=== PATIENT | female | born 1960 | race Caucasian/White ===

== ENCOUNTER 2016-10-10 21:37 | Inpatient (IN) | payer OTHER ==
[~2016-10-10] VITALS: Ht 165.1 cm; Wt 128.4 kg
--- NOTE | ~2016-10-10 | CATHLAB ---
[facility] [email or web address] [address] INVASIVE PROCEDURE REPORT Name: DESMOND EDWARD TIMOTHY Room #: 219-P [facility] IN ..#: [id number] Admission: 10/10/16 Attend Phys: Thien Abrams Discharge: Date of : 64 Date of Service: 10/11/16 1044 Report #: [id number] THIS REPORT FOR: //name// CC: Jamie Lopez DATE OF SERVICE: 10/11/2016 INDICATIONS: Unstable angina Full risks, benefits and alternatives of cardiac catheterization were explained to the patient. All questions were answered. Informed consent was obtained. The right groin area was prepped and draped in a sterile manner. Lidocaine was given subcutaneously. A 4-Central [place] sheath was inserted into the right femoral artery via modified Seldinger technique. CORONARY ANATOMY: The left main artery is a large caliber vessel, with no flow-limiting lesions. The LAD is calcified in the proximal segment with mild disease, less than 20%. There is a stent in the mid segment of the LAD, patent with mild restenosis, less than 30%. Just before this stented area, there is mild diffuse disease, 30%. The distal LAD tapers down to a small size caliber vessel with mild plaquing. The left circumflex artery has an ostial 40% stenosis. There are multiple stents in the proximal and mid segments of the left circumflex artery, with crzk-vn-dewrclvi restenosis, 20-40%. The first obtuse marginal artery is a small caliber vessel with a stent in the proximal segment. There is at least moderate restenosis, 50-60% within the stent of the first obtuse marginal artery. This is a small caliber vessel and medical therapy is recommended. The RCA is a dominant vessel. There is mild diffuse disease in the proximal and mid segments of the RCA, 30%. The PDA has a focal 50% stenosis in the mid segment. There are posterolateral branches with mild plaquing. A left ventriculogram was performed revealing normal LV systolic function, ejection fraction of 60%. The LVEDP is approximately 33 mmHg. There is no [facility] [address] [place] [address] INVASIVE PROCEDURE REPORT Name: CHEYANNEDESMONDJessica AGUIRRE Room #: 219-P [facility] IN M.R.#: [id number] Admission: 10/10/16 Attend Phys: Thien Abrams Discharge: Date of : 64 Date of Service: 10/11/16 1044 Report #: [id number] gradient across the outflow tract. IMPRESSION: 1. Patent stents in the left anterior descending with mild restenosis. 2. Patent stents in the left circumflex artery with uylx-ba-ddlhnpkd restenosis. 3. Chjihbzz-kh-xpiedd restenotic lesion in the first obtuse marginal artery stent, this is a small caliber vessel and medical therapy is recommended. 4. Moderate stenosis in the mid posterior descending artery. Recommend medical therapy. 5. Normal left ventricular systolic function. <ELECTRONICALLY SIGNED> By: Winston Munoz MD 10/12/16 1219 1044 1140 Winston Munoz MD /nt
--- NOTE | ~2016-10-10 | EKG ---
[place] [address] [facility] [place] [address] ELECTROCARDIOGRAM REPORT Name: DESMOND EDWARD Room #: 219-P ADM IN M.R.#: [id number] Admission: 10/10/16 Attend Phys: Bernardo Lopez MD Discharge: Date of : 64 Report #: [id number] THIS REPORT FOR: //name// [facility] ED Test Date: 2016-10-10 Test Time: 21:41:36 Pat Name: DESMOND EDWARD Department: Room: 219 P Gender: F Mangle Roller: [id number] : 1960 Requested By: Rigoberto Aldridge Order Number: [id number] MD: Winston Munoz Measurements Intervals [place] Rate: 45 P: 45 [place]: 199 QRS: 8 QRSD: 111 T: 92 QT: 507 QTc: 439 Interpretive Statements Sinus bradycardia Borderline low voltage, extremity leads Poor R wave progression Nonspecific T abnormalities, lateral leads No previous ECG available for comparison Electronically Signed On 10-11-2016 10:46:11 [employer]STRUCTION [employer] by Winston Munoz [email or web address] <ELECTRONICALLY SIGNED> By: Winston Munoz MD 10/11/16 1046 2141 40 Winston Munoz MD /JESUS
--- NOTE | ~2016-10-10 | HC ---
[facility] [place] [address] CONSULTATION Name: DESMOND EDWARDGREGORIO Room #: 219-P [facility] IN M.R.#: [id number] Admission: 10/10/16 Attend Phys: Bernardo Lopez MD Discharge: 10/17/16 Date of : 64 Report #: [id number] THIS REPORT FOR: //name// CC: Jamie Lopez DATE OF SERVICE: 10/16/2016 DATE OF SERVICE: 10/16/2016 HISTORY OF PRESENT ILLNESS: The patient is a 56-year-old white female with a history of end-stage renal disease, on hemodialysis, coronary artery disease with multiple prior stents, admitted with chest pain. She was noted to have unstable angina with bradycardia. She underwent cardiac catheterization with the multiple stents noted in the recommendations for medical treatment. The patient has a prior history of recent fall approximately 2 weeks prior with the onset of left-sided lateral thigh pain and some back pain as well. She notes the pain, especially over her left lateral thigh. Left hip x-rays were negative for along with femur x-rays and lumbar spine. She is being given tramadol p.r.n. along with heating pad. She also notes a prior history of calciphylaxis involving the right leg and indicates that she has a prior history of some right knee instability with this. PAST MEDICAL HISTORY: Includes insulin-dependent diabetes mellitus, obesity, end-stage renal disease on hemodialysis, coronary artery disease with multiple stents, history per patient of calciphylaxis with involvement of the right lower extremity. She does have the morbid obesity, GERD, hypothyroidism, pancreatitis, dyslipidemia, prior OH, non-ST elevation OH, known peripheral neuropathy related to her diabetes, prior MRSA infection in 2010. PAST SURGICAL HISTORY: Includes cholecystectomy, abscess drainage from the left buttocks and coronary angioplasty with stent placement. FAMILY HISTORY: Mother has chronic kidney disease and has been on dialysis as well. Mother has diabetes mellitus and hypertension. ALLERGIES: Multiple allergies are listed. Please see MAR. SOCIAL HISTORY: Lives in a house with her parents 2 steps in. She has used a walker the past 9 months since she has been on dialysis. She has been a short distance roller walker ambulator. She notes that she and her parents tend to help each other. She could dress herself, was able to get on and off the toilet without difficulty, although she notes the bathroom was tight and she often needed to bed bath, rather than take a shower or bath. REVIEW OF SYSTEMS: Did not offer any current complaints of chest pain, [address] [address] CONSULTATION Name: DESMOND EDWARD Room #: 219-P [facility] IN ..#: [id number] Admission: 10/10/16 Attend Phys: Bernardo Lopez MD Discharge: 10/17/16 Date of : 64 Report #: [id number] shortness of breath, abdominal discomfort. She notes the left lateral thigh discomfort. No other focal weakness of the upper or lower extremities. She notes decreased sensation distal lower extremities. PHYSICAL EXAMINATION: GENERAL: A 56-year-old morbidly obese white female in no obvious distress. VITAL SIGNS: Last recorded temperature 98.3, pulse 91, respirations 16, blood pressure 192/82. NEUROLOGIC: She is alert, pleasant. HEENT: Appeared to be benign. Cranial nerves are grossly intact. Facies are symmetric. EXTREMITIES: She has functional range of motion of both upper extremities. Strength are grade 4-/5. DTRs are trace to 1. She does have obesity with a significant abdominal pannus. Left thigh, there is no evidence of any ecchymosis. She notes some pain over the left lateral hip and thigh area. She was able to flex that left hip, although has some discomfort with doing it compared to the right. Upon testing bilateral hip abduction, it appeared to be symmetric to the left. This also was the case for adduction. I would grade them both at a 4-/5. Knee extension was a grade 4-/5, ankle dorsiflexion was 3+ to 4-/5. Some discomfort with attempted left knee flexion. There is no focal calf swelling. She does have decreased distal sensation with her neuropathy in a stocking distribution. She is contact guard with mov-dw-noymd transfers. Gait was 4 feet front wheeled walker, min assist. ASSESSMENT: A 56-year-old white female with the following problem list: 1. Left lateral hip and thigh pain post fall. 2. History of calciphylaxis with involvement of the right lower extremity. 3. Medical complexity with generalized debilitation. 4. Unstable angina with bradycardia, status post cardiac catheterization with recommendations for medical treatment. 5. Prior history of coronary artery disease with multiple stents. 6. End-stage renal disease, on hemodialysis. 7. Morbid obesity. 8. Insulin-dependent diabetes mellitus. 9. Diabetic peripheral neuropathy. PLAN: Occupational therapy orders are added. She is being considered regarding acute inpatient rehabilitation. We will be glad to follow along with you regarding her rehab therapy needs. <ELECTRONICALLY SIGNED> By: David Arshad MD 10/22/16 1617 1242 [id number] David Arshad MD /nt
--- NOTE | ~2016-10-10 | HC ---
[facility] [place] [address] CONSULTATION Name: DESMOND EDWARD Room #: 219-P [facility] IN M.R.#: [id number] Admission: 10/10/16 Attend Phys: Bernardo Lopez MD Discharge: Date of : 64 Report #: [id number] THIS REPORT FOR: //name// CC: Jamie Lopez REASON FOR CONSULTATION: End-stage renal disease. REASON FOR THE PRESENTATION: Chest pain. HISTORY OF PRESENT ILLNESS: This is an extremely noncompliant patient. She is a 56-year-old with past medical history of end-stage renal disease, maintained on dialysis. She decided that she is not in need for dialysis anymore and opted not to go for her dialysis treatment for the last 5 weeks. She is known to have an extensive past medical history including diabetes mellitus, hypertension, morbid obesity, bilateral lymphedema complicated by calciphylaxis lesions on her right thigh and this has healed. She also is known to have extensive coronary artery disease. She has had multiple stents and she is followed by at [facility], most recent was a couple of months ago. She presented complaining of chest pain. She tells me that this is pretty much at rest. This was associated with radiation to the neck and shortness of breath and was similar to her previous similar episodes. She had mentioned that nitroglycerin would provide her with some relief. She was admitted for further evaluation and management. I confirmed with her dialysis unit that she had not received any dialysis treatment for the last 5 weeks. On presentation, her potassium was mildly elevated at 5.6. Her creatinine was 6.6. Her BUN was 53. She continues to make urine. PAST MEDICAL HISTORY: 1. End-stage renal disease. 2. Coronary artery disease. 3. Multiple coronary stents. 4. Hypothyroidism. 5. Diabetes mellitus. 6. Morbid obesity. 7. Calciphylaxis. 8. Hyperlipidemia. 9. Remote history of MRSA. PAST SURGICAL HISTORY: 1. . 2. Cataract. 3. Multiple coronary stents. 4. Cholecystectomy. 5. Skin biopsy. 6. Left AV fistula. [facility] [address] [place] [address] CONSULTATION Name: DESMOND EDWARD TIMOTHY Room #: 219-P [facility] IN .R.#: [id number] Admission: 10/10/16 Attend Phys: Bernardo Lopez MD Discharge: Date of : 64 Report #: [id number] FAMILY HISTORY: Well known chronic kidney disease is documented in her family, along with diabetes mellitus and hypertension. ALLERGIES: Numerous including DOXYCYCLINE, MORPHINE, METFORMIN, METHYLPREDNISOLONE, METOCLOPRAMIDE and GABAPENTIN. CURRENT MEDICATIONS: 1. Effient. 2. Ranexa. 3. . 4. Metoprolol. 5. Felodipine. 6. Aspirin. 7. Torsemide. 8. Insulin. 9. Levothyroxine. REVIEW OF SYSTEMS: GENERAL: No fever or chills. CARDIOVASCULAR: Significant for chest pain at rest. PULMONARY: No cough or hemoptysis. GASTROINTESTINAL: No nausea or vomiting. GENITOURINARY: No hematuria, no frequency, no urgency. SKIN: Extensive bilateral lower extremity edema with an old scar at the site of her calciphylactic lesions on the right thigh. PHYSICAL EXAMINATION: GENERAL: The patient is alert, oriented, morbidly obese. VITAL SIGNS: Blood pressure was 146/63, temperature was 36.4. HEAD AND NECK: No jugular venous distention, no bruit, no thyromegaly. CHEST: Decreased air entry bilaterally. CARDIOVASCULAR: Distant, with no rub detected. ABDOMEN: Soft, nontender. Massive abdominal wall edema. EXTREMITIES: Lower extremity scars from her previous calciphylactic lesions with extensive lymphedema and edema. LABORATORY DATA: Laboratory values reviewed. White blood cell count is 11.8. Chemistry revealed creatinine of 6.6 and a potassium of 5.6. Her troponins were unremarkable. Her TSH was elevated at 8.96. ASSESSMENT, IMPRESSION AND PLAN: 1. End-stage renal disease. 2. Noncompliance. 3. Coronary artery disease, status post multiple stents. 4. Hypothyroidism. 5. Fluid overload. [address] [address] CONSULTATION Name: DESMOND EDWARD TIMOTHY Room #: 219-P [facility] IN M.R.#: [id number] Admission: 10/10/16 Attend Phys: Bernardo Lopez MD Discharge: Date of : 64 Report #: [id number] 6. Hyperkalemia. 7. Diabetes mellitus. 8. Remote history of calciphylaxis. 9. Discussed at length with the patient. We will restart dialysis. Unfortunately, the patient is not able to take care of herself and she is making inappropriate medical decisions. She has not dialyzed for the last 5 weeks. We will aim for dialysis treatment today. I have explained the risk of the behavior for the patient. Cardiac workup had been initiated and the patient will have further evaluation and management by the cardiac team. She does carry a very high risk of coronary artery disease with previous history of multiple stents and I will defer the management of her coronary artery disease to the cardiology team. 10. Her TSH is markedly elevated and I suspect that the patient is not taking her medications. 11. Local care of her edema. 12. Her calciphylactic wound had healed extremely well. However, with her current noncompliance, there is a high risk of future lesions. 13. Check labs in the morning. 14. Blood pressure control. 15. Blood sugar control. 16. We will continue to follow along during her hospital stay. <ELECTRONICALLY SIGNED> By: Lenny Mckee MD 10/16/16 1030 0917 1023 Lenny Mckee MD /nt
[2016-10-10 21:37] VITALS: BP 106/43
[~2016-10-10 21:37] MED LIST: ALLOPURINOL 10100 M1 PO; ASPIR 8181 MG PO; BENICAR40 MG PO; CRESTOR20 MG PO; DEMADEX20 MG PO; DOXYCYCLINE 10100 MG PO; EFFIENT10 MG PO; FELODIPINE 5 MG5 M1 PO; HUMALOG100 UNIT/1 SUBQ; LANTUS100 UNIT/M SUBQ; LEVOTHYROXIN0.137 M1 PO; NEXIUM40 MG PO; PEPCID20 MG PO; RANEXA500 MG PO; SIMVASTATIN40 MG PO; TOPROL XL100 MG PO; TRAMADOL 50 MG50 MG PO; ZAROXOLYN 5MG TA5 MG PO
[2016-10-10] MEDS ORDERED: ERYTHROMYCIN250 MG (21:55)
[2016-10-10] MEDS ORDERED: ZETIA10 MG PO (21:56)
[2016-10-10] MEDS ORDERED: NITROGLYCERIN0.4 MG SUBLING (21:57)
[2016-10-10 21:58] LABS: ABSOLUTE NEUTROPHILS 8.8 thou/uL (1.4-8.2); BASOPHILS 1.5 % (0.0-2.0); EOSINOPHILS 5.8 % (0.0-3.0); HEMATOCRIT 30.2 % (37.0-47.0); LYMPHOCYTES 10.5 % (24.0-44.0); MCH 28.1 pg (26.0-34.0); MCV 85.3 fL (80.0-100.0); MONOCYTES 7.7 % (1.0-8.0); PLATELET COUNT 393 thou/uL (150-400); POLYS 74.5 % (36.0-66.0); RBC 3.54 mil/uL (4.20-5.00); WBC 11.8 thou/uL (4.0-11.0)
[2016-10-10] MEDS ORDERED: BENICAR40 MG PO (21:58)
[2016-10-10] MEDS ORDERED: MIRALAX17 GM PO (21:58)
[2016-10-10 21:59] LABS: MANUAL DIFF NO
[2016-10-10 22:06] LABS: ANION GAP 11 mmol/L (7-16); BUN 53 mg/dL (7-18); CALCIUM 7.7 mg/dL (8.5-10.1); CHLORIDE 97 mmol/L (98-107); CO2 23 mmol/L (21-32); CREATININE 6.6 mg/dL (0.6-1.3); GLUCOSE 156 mg/dL (70-99); POTASSIUM 5.6 mmol/L (3.5-5.1); SODIUM 131 mmol/L (136-145)
[2016-10-10 22:15] LABS: ALKALINE PHOSPHATASE 107 U/L (46-116); MAGNESIUM 2.3 mg/dL (1.8-2.4); SGOT 9 U/L (15-37); SGPT 12 U/L (30-65); TOTAL BILIRUBIN 0.4 mg/dL (<0.1-1.0); TOTAL PROTEIN 6.7 g/dL (6.4-8.2); TROPONIN-I < 0.04 ng/mL (<0.04-0.07)
[2016-10-10 23:34] VITALS: BP 123/49
[2016-10-10 23:59] VITALS: BP 118/50
[2016-10-11 05:21] VITALS: BP 146/63
[2016-10-11 08:43] VITALS: BP 134/50
[2016-10-11 11:37] LABS: CALCIUM 7.9 mg/dL (8.5-10.1); CREATININE 6.7 mg/dL (0.6-1.3); POTASSIUM 5.5 mmol/L (3.5-5.1)
[2016-10-11 12:00] VITALS: BP 134/50
[2016-10-11 19:13] VITALS: BP 136/53
[2016-10-11 23:55] VITALS: BP 153/55
[2016-10-12 00:11] LABS: GLYCOHEMOGLOBIN (HGB A1C) 6.5 % (4.8-5.6)
[2016-10-12 04:26] LABS: ABSOLUTE NEUTROPHILS 7.1 thou/uL (1.4-8.2); BASOPHILS 0.8 % (0.0-2.0); HEMATOCRIT 27.4 % (37.0-47.0); HEMOGLOBIN 8.9 gm/dL (12.0-15.0); LYMPHOCYTES 12.8 % (24.0-44.0); MCH 27.9 pg (26.0-34.0); MCHC 32.7 % (28.0-37.0); MCV 85.5 fL (80.0-100.0); MONOCYTES 9.6 % (1.0-8.0); POLYS 72.8 % (36.0-66.0); RDW 15.6 % (10.5-14.5); WBC 9.7 thou/uL (4.0-11.0)
[2016-10-12 04:33] VITALS: BP 151/61
[2016-10-12 04:37] LABS: PLATELET COUNT 318 thou/uL (150-400)
[2016-10-12 04:38] LABS: MANUAL DIFF NO
[2016-10-12 04:44] LABS: ALBUMIN 1.9 g/dL (3.4-5.0); CALCIUM 7.6 mg/dL (8.5-10.1); MAGNESIUM 2.1 mg/dL (1.8-2.4); PHOSPHORUS 4.7 mg/dL (2.5-4.9)
[2016-10-12 05:05] LABS: CREATININE 4.8 mg/dL (0.6-1.3); POTASSIUM 4.4 mmol/L (3.5-5.1)
[2016-10-12 07:30] VITALS: BP 144/54
[2016-10-12 11:30] VITALS: BP 142/60
[2016-10-12 16:45] VITALS: BP 140/61
[2016-10-12 19:30] VITALS: BP 149/58
[2016-10-13 03:58] VITALS: BP 164/54
[2016-10-13 07:20] VITALS: BP 174/69
[2016-10-13 11:15] VITALS: BP 105/75
[2016-10-13 14:28] VITALS: BP 158/68
[2016-10-13 16:10] VITALS: BP 160/59
[2016-10-13 19:09] VITALS: BP 175/70
[2016-10-14 04:09] LABS: HEMATOCRIT 28.5 % (37.0-47.0); HEMOGLOBIN 9.5 gm/dL (12.0-15.0); MCH 28.5 pg (26.0-34.0); MCHC 33.3 % (28.0-37.0); MCV 85.6 fL (80.0-100.0); RBC 3.33 mil/uL (4.20-5.00); RDW 15.8 % (10.5-14.5); WBC 9.1 thou/uL (4.0-11.0)
[2016-10-14 04:18] LABS: CALCIUM 7.7 mg/dL (8.5-10.1); POTASSIUM 4.8 mmol/L (3.5-5.1)
[2016-10-14 04:26] VITALS: BP 171/63
[2016-10-14 07:20] VITALS: BP 158/79
[2016-10-14 16:30] VITALS: BP 183/75
[2016-10-14 17:10] LABS: URINE BLOOD 3+ (Negative); URINE COLOR YELLOW; URINE GLUCOSE-RANDOM* 1+ (Negative); URINE KETONES TRACE (Negative); URINE LEUKOCYTES-REFLEX TRACE (Negative); URINE PROTEIN (DIPSTICK) 3+ (Negative); URINE SPECIFIC GRAVITY 1.015 (1.003-1.035); URINE UROBILINOGEN 0.2 E.U./dl (0.2-1.0)
[2016-10-14 17:24] LABS: ICTOTEST (BILI CONFIRMATORY) Negative (Negative); URINE BILIRUBIN NEGATIVE (Negative)
[2016-10-14 17:27] LABS: CASTS None Seen /LPF (None Seen); SQUAMOUS None Seen /LPF (0-3); URINE RBC >20 Many /HPF (0-2); URINE WBC-REFLEX 0-5 Rare /HPF (0-5)
[2016-10-14 17:28] LABS: CRYSTALS None Seen /LPF (None Seen)
[2016-10-15 02:21] VITALS: BP 172/68
[2016-10-15 04:41] LABS: HEMATOCRIT 27.1 % (37.0-47.0); HEMOGLOBIN 8.9 gm/dL (12.0-15.0); MCH 28.5 pg (26.0-34.0); MCHC 32.7 % (28.0-37.0); MCV 87.1 fL (80.0-100.0); RBC 3.11 mil/uL (4.20-5.00); RDW 16.1 % (10.5-14.5); WBC 5.3 thou/uL (4.0-11.0)
[2016-10-15 04:56] LABS: CALCIUM 7.8 mg/dL (8.5-10.1)
[2016-10-15 05:10] LABS: CREATININE 3.4 mg/dL (0.6-1.3)
[2016-10-15 08:29] VITALS: BP 168/64
[2016-10-15 12:04] VITALS: BP 172/68
[2016-10-15 16:28] VITALS: BP 164/71
[2016-10-15 19:03] VITALS: BP 184/82
[2016-10-16 05:11] VITALS: BP 179/84
[2016-10-16 07:29] VITALS: BP 173/78
[2016-10-16] MEDS ORDERED: TRAMADOL 50 MG50 MG PO (09:26)
[2016-10-16] MEDS ORDERED: NYAMYC15 GM TOP (09:27)
[2016-10-16 11:30] VITALS: BP 190/82
[2016-10-16 15:38] VITALS: BP 173/68
[2016-10-16 20:09] VITALS: BP 168/59
[2016-10-17 03:34] VITALS: BP 185/74
[2016-10-17 08:45] VITALS: BP 169/58
[2016-10-17 11:30] VITALS: BP 176/89
[2016-10-24] MEDS ORDERED: AMLODIPINE BESYL5 MG PO (09:08)
== END 2016-10-17 16:07 | DRG 286 ==
LOC: ER 21:37 → 2N 22:51 → EROBS 22:51 → 2N 23:37
PROVIDERS: Emergency Medicine; Family Medicine; Hospitalist; Internal Medicine; Internal Medicine Cardiovascular Disease; Nurse Practitioner
PROC: B2111ZZ Fluoroscopy of Multiple Coronary Arteries using Low Osmolar Contrast (ICD-10-PCS; principal; 2016-10-11)
PROC: B2151ZZ Fluoroscopy of Left Heart using Low Osmolar Contrast (ICD-10-PCS; principal; 2016-10-11)
PROC: 4A023N8 Measurement of Cardiac Sampling and Pressure, Bilateral, Percutaneous Approach (ICD-10-PCS; principal; 2016-10-11)
PROC: 5A1D60Z (ICD-10-PCS; 2016-10-11)
DX: I25.119 Atherosclerotic heart disease of native coronary artery with unspecified angina pectoris (principal); N18.6 End stage renal disease; I50.41 Acute combined systolic (congestive) and diastolic (congestive) heart failure; I13.2 Hypertensive heart and chronic kidney disease with heart failure and with stage 5 chronic kidney disease, or end stage renal disease; Z68.42 Body mass index [BMI] 45.0-49.9, adult; E66.01 Morbid (severe) obesity due to excess calories; K21.9 Gastro-esophageal reflux disease without esophagitis; E03.9 Hypothyroidism, unspecified; E78.5 Hyperlipidemia, unspecified; R00.1 Bradycardia, unspecified; E78.00 Pure hypercholesterolemia, unspecified; E87.5 Hyperkalemia; E87.70 Fluid overload, unspecified; D64.9 Anemia, unspecified; E11.22 Type 2 diabetes mellitus with diabetic chronic kidney disease; E11.42 Type 2 diabetes mellitus with diabetic polyneuropathy; Z95.5 Presence of coronary angioplasty implant and graft; Z90.49 Acquired absence of other specified parts of digestive tract; Z88.1 Allergy status to other antibiotic agents; Z88.6 Allergy status to analgesic agent; Z91.041 Radiographic dye allergy status; Z88.8 Allergy status to other drugs, medicaments and biological substances; Z91.013 Allergy to seafood; Z91.018 Allergy to other foods; I25.2 Old myocardial infarction; Z82.49 Family history of ischemic heart disease and other diseases of the circulatory system; Z83.3 Family history of diabetes mellitus; Z79.4 Long term (current) use of insulin; Z79.899 Other long term (current) drug therapy; Z98.49 Cataract extraction status, unspecified eye; Z91.19 Patient's noncompliance with other medical treatment and regimen; Z86.14 Personal history of Methicillin resistant Staphylococcus aureus infection; Z79.82 Long term (current) use of aspirin; Z99.2 Dependence on renal dialysis
CPT/HCPCS: 10081; 32100

== ENCOUNTER 2016-12-15 04:39 | Inpatient (IN) | payer OTHER ==
[~2016-12-15] VITALS: Ht 165.1 cm; Wt 140.3 kg
--- NOTE | ~2016-12-15 | H ---
[facility] [place] [address] HISTORY AND PHYSICAL Name: DESMOND EDWARD Room #: 440-P [facility] IN M.R.#: [id number] Admission: 12/15/16 Attend Phys: Jerad Foley MD Discharge: Date of : 64 Report #: [id number] THIS REPORT FOR: //name// CC: Jerad Clark REASON FOR PRESENTATION: Shortness of breath. HISTORY OF PRESENT ILLNESS: This is a 56-year-old female patient with extreme noncompliance. She is a dialysis patient who had not been to her dialysis unit ever since October the first. She is known to have end-stage renal disease attributed to diabetes mellitus and hypertension. She has also suffered from calciphylaxis in the past. She has had numerous hospitalizations for cellulitis, calciphylaxis, angina and chest pain. She claims that she is not able to get in and out of her house and that is why she keeps missing her dialysis. She presented for further evaluation and management. She has been offered to stay in a nursing facility in the past; however, this did not go through. As I have stated, she has had numerous hospitalizations in the last couple of months due to her noncompliance. Shortness of breath started yesterday. She stated that she has gained significant amount of weight in the last few weeks that she missed dialysis. PAST MEDICAL HISTORY: 1. End-stage renal disease. 2. Diabetes mellitus. 3. Hypertension. 4. Hypothyroidism. 5. Coronary artery disease, multiple stents. 6. Morbid obesity. 7. Tonsillectomy. 8. Left AV fistula. 9. Cataract. 10. . 11. Gallbladder. 12. Calciphylaxis wounds. FAMILY HISTORY: Chronic kidney disease. Mother had diabetes mellitus, hypertension and chronic kidney disease. CURRENT MEDICATIONS: 1. Allopurinol. 2. Effient. 3. Ranexa. 4. Lispro insulin. 5. Metoprolol. 6. Rosuvastatin. 7. Torsemide. [facility] [address] [place] [address] HISTORY AND PHYSICAL Name: DESMOND EDWARD TIMOTHY Room #: 440-[facility]..#: [id number] Admission: 12/15/16 Attend Phys: Jerad Foley MD Discharge: Date of : 64 Report #: [id number] 8. Tramadol. 9. Nitroglycerin p.r.n. 10. Olmesartan. SOCIAL HISTORY: No drug or alcohol abuse. She stays at her home. REVIEW OF SYSTEMS: GENERAL: No fever or chills. CARDIOVASCULAR: Significant chest pain and shortness of breath. PULMONARY: Significant shortness of breath. GASTROINTESTINAL: No nausea or vomiting. GENITOURINARY: No frequency or urgency. She still makes urine. MUSCULOSKELETAL: Diffuse arthralgias, myalgias and back pain. SKIN: Excessive lymphedema in the lower extremities. PHYSICAL EXAMINATION: GENERAL: She is alert, oriented. VITAL SIGNS: Blood pressure is 169/59, pulse ox is 100. She is on room air. She is afebrile. HEAD AND NECK: No jugular venous distention. CHEST: Decreased air entry bilaterally. CARDIOVASCULAR: Regular, with no rub detected. Soft systolic murmur. ABDOMEN: Obese, protuberant. No guarding or rigidity. LOWER EXTREMITIES: Extensive bilateral lower extremity lymphedematous changes. LABORATORY DATA: Laboratory values reviewed. BNP is elevated. Albumin is low as expected. BUN is 149, creatinine 6.2. INR is 1.1. ASSESSMENT, IMPRESSION AND PLAN: 1. End-stage renal disease. 2. Fluid overload. 3. Noncompliance. 4. Extensive lymphedema. 5. Hypertension. 6. Diabetes mellitus. 7. Morbid obesity. 8. Remote calciphylaxis. 9. Admission. 10. Nephrology had been consulted and the case was discussed with Dr. Kramer. 11. Hemodialysis in the a.m. 12. Needs few days of aggressive ultrafiltration. 13. Blood pressure control. 14. Blood sugar control. [facility] [address] [place] [address] HISTORY AND PHYSICAL Name: DESMOND EDWARD Room #: [address] [place] [address]#: [id number] Admission: 12/15/16 Attend Phys: Jerad Foley MD Discharge: Date of : 64 Report #: [id number] 15. Resume her home medications. 16. long-term placement is the best option for this unfortunate patient. <ELECTRONICALLY SIGNED> By: Lenny Mckee MD 12/15/16 1026 0949 1023 Lenny Mckee MD /nt
--- NOTE | ~2016-12-15 | EKG ---
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 : 1960 Requested By: Sylvia Mckinley Order Number: [id number] MD: Puneet Cerda Measurements Intervals [place] Rate: 73 P: 68 [place]: 199 QRS: 19 QRSD: 109 T: 114 QT: 429 QTc: 473 Interpretive Statements Sinus rhythm Borderline low voltage, extremity leads Abnormal T, consider ischemia, lateral leads Compared to ECG 10/28/2016 14:59:16 No significant change was found Electronically Signed On 12-16-2016 9:04:27 CDT by Puneet Cerda [email or web address] <ELECTRONICALLY SIGNED> By: Puneet Cerda MD, [facility] 12/16/16 0904 0446 0446 Puneet Cerda MD, [facility] /EPI
--- NOTE | ~2016-12-15 | HC ---
[facility] [place] [address] CONSULTATION Name: DESMOND EDWARD Room #: 440-P [facility] IN ..#: [id number] Admission: 12/15/16 Attend Phys: Jerad Foley MD Discharge: Date of : 64 Report #: [id number] THIS REPORT FOR: //name// CC: BARBARA Clark DATE OF SERVICE: 12/15/2016 REASON FOR CONSULTATION: End-stage renal disease. HISTORY OF PRESENT ILLNESS: This 56-year-old female has end-stage renal disease due to diabetes mellitus and hypertension. She has been irregular with her dialysis treatments. She last dialyzed on 10/30/2016. She has gained approximately 50 pounds since that time. She reports that she is physically unable to get to a car and arrange transportation for her dialysis treatments. The patient has a longstanding history of morbid obesity, hypertension, diabetes mellitus, and diffuse atherosclerotic cardiovascular disease. PAST MEDICAL HISTORY: Otherwise remarkable for hypothyroidism, coronary artery disease, status post multiple percutaneous coronary interventions; left AV fistula, previous cholecystectomy, and tonsillectomy. The patient has had severe calciphylaxis post-treatment and her wounds have healed. FAMILY HISTORY: Remarkable for chronic kidney disease in both her mother and father. MEDICATIONS: On admission include allopurinol, Effient, Ranexa, insulin, metoprolol, Crestor, torsemide, tramadol, nitroglycerin, and olmesartan. PERSONAL AND SOCIAL HISTORY: The patient does not smoke, use alcohol or have any history of substance abuse. She lives with her parents. REVIEW OF SYSTEMS: Remarkable for the absence of fevers, chills, sweats or other constitutional complaints. She reports increasing swelling with an approximately 50-pound weight gain. She reports dyspnea with minimal exertion. She denies productive cough, hemoptysis, chest pain, nausea, vomiting, diarrhea or constipation. PHYSICAL EXAMINATION: GENERAL: Reveals a well developed, chronically ill, debilitated, morbidly obese female, in no acute distress. VITAL SIGNS: Blood pressure 178/68, pulse 75, temperature 97.7, weight 326 pounds, and height 5 feet 5 inches. SKIN: Warm and dry. There is 3+ pitting edema of the lower extremities through [place] [id number] CONSULTATION Name: DESMOND EDWARD Room #: 440-P [facility] IN .R.#: [id number] Admission: 12/15/16 Attend Phys: Jerad Foley MD Discharge: Date of : 64 Report #: [id number] the hips bilaterally. There is no edema of the upper extremities. There is no gross adenopathy present. HEENT: The head is normocephalic and atraumatic. The sclerae are white and conjunctivae are not injected. The pharynx is benign. NECK: Supple. LUNGS: Workman reveal diminished breath sounds at the bases bilaterally without audible wheezes or crackles heard. CARDIOVASCULAR: Reveals a regular rate and rhythm without rub. ABDOMEN: Obese, soft and nontender without palpable mass or organomegaly. NEUROLOGIC: Reveals the patient to be alert and cooperative with a nonfocal exam. LABORATORY STUDIES: Available at the time of admission include sodium 135, potassium 4.6, chloride 105, CO2 of 18, BUN 49, creatinine 6.2, glucose 132, calcium 6.3, phosphorus 8.0. Albumin 1.6. White blood cell count 12,400, hemoglobin 9.7, hematocrit 30.1, and platelet count 363,000. ASSESSMENT: 1. End-stage renal disease, noncompliant with dialysis. She has sustained an approximate 50-pound weight gain, which is all edema in her lower extremities. We will undertake daily dialysis with significant ultrafiltration in an effort to restore euvolemia. 2. Diabetes mellitus. We will decrease her standing insulin dosage as diet in hospital will be significantly different from her home diet. 3. Diffuse atherosclerotic cardiovascular disease, status post multiple percutaneous coronary intervention/sent procedures. PLAN: As outlined above. Please see orders. <ELECTRONICALLY SIGNED> By: Jesse Kramer MD 12/16/16 1153 0921 1146 Jesse Kramer MD /nt
[~2016-12-15 04:39] MED LIST changes: +AMLODIPINE BESYL5 MG PO; +ERYTHROMYCIN250 MG; +MIRALAX17 GM PO; +NITROGLYCERIN0.4 MG SUBLING; +NYAMYC15 GM TOP; +ZETIA10 MG PO
[2016-12-15 04:41] VITALS: BP 189/66
[2016-12-15] MEDS ORDERED: TYLENOL325 MG PO (04:51)
[2016-12-15] MEDS ORDERED: FENTANYL PA50 MCG/HR TRANSDERM (04:53)
[2016-12-15] MEDS ORDERED: LACTOBACILLUS (04:54)
[2016-12-15 06:04] LABS: ABSOLUTE NEUTROPHILS 8.5 thou/uL (1.4-8.2); BASOPHILS 1.3 % (0.0-2.0); EOSINOPHILS 8.7 % (0.0-3.0); HEMATOCRIT 30.1 % (37.0-47.0); HEMOGLOBIN 9.7 gm/dL (12.0-15.0); MCHC 32.2 g/dL (28.0-37.0); MCV 86.9 fL (80.0-100.0); MONOCYTES 7.6 % (1.0-8.0); PLATELET COUNT 363 thou/uL (150-400); POLYS 68.4 % (36.0-66.0); RBC 3.46 mil/uL (4.20-5.00); RDW 17.5 % (10.5-14.5); WBC 12.4 thou/uL (4.0-11.0)
[2016-12-15 06:10] LABS: MANUAL DIFF NO
[2016-12-15 06:13] LABS: CALCIUM 6.3 mg/dL (8.5-10.1); CREATININE 6.2 mg/dL (0.6-1.3); POTASSIUM 4.6 mmol/L (3.5-5.1)
[2016-12-15 06:15] LABS: APTT 28.2 Seconds (24.5-32.8); INR 1.1; PROTIME 10.9 Seconds (9.3-11.4)
[2016-12-15 06:24] LABS: ALBUMIN 1.6 g/dL (3.4-5.0); TOTAL BILIRUBIN 0.2 mg/dL (<0.1-1.0); TOTAL PROTEIN 5.5 g/dL (6.4-8.2); TROPONIN-I 0.07 ng/mL (<0.04-0.07)
[2016-12-15 08:00] VITALS: BP 169/59
[2016-12-15 12:00] VITALS: BP 163/61
[2016-12-15 16:00] VITALS: BP 178/67
[2016-12-15 19:40] VITALS: BP 175/101
[2016-12-16 03:10] VITALS: BP 164/65
[2016-12-16 06:10] LABS: HEMATOCRIT 34.3 % (37.0-47.0); HEMOGLOBIN 10.9 gm/dL (12.0-15.0); MCH 27.8 pg (26.0-34.0); MCHC 31.7 g/dL (28.0-37.0); MCV 87.7 fL (80.0-100.0); RBC 3.91 mil/uL (4.20-5.00); RDW 17.9 % (10.5-14.5); WBC 13.3 thou/uL (4.0-11.0)
[2016-12-16 06:18] LABS: ALBUMIN 1.6 g/dL (3.4-5.0); CALCIUM 6.8 mg/dL (8.5-10.1); CREATININE 6.2 mg/dL (0.6-1.3); POTASSIUM 4.1 mmol/L (3.5-5.1)
[2016-12-16 08:00] VITALS: BP 193/72
[2016-12-16 11:12] LABS: % SATURATION 19 % (20-39); IRON 31 ug/dL (50-170); TIBC 161 ug/dL (250-450); UIBC 130 ug/dL
[2016-12-16 12:00] VITALS: BP 172/64
[2016-12-16 18:12] VITALS: BP 174/58
[2016-12-16 19:51] VITALS: BP 150/58
[2016-12-17 04:24] VITALS: BP 158/84
[2016-12-17 05:34] LABS: HEMOGLOBIN 10.7 gm/dL (12.0-15.0); MCH 28.1 pg (26.0-34.0); MCHC 32.4 g/dL (28.0-37.0); MCV 86.8 fL (80.0-100.0); RBC 3.81 mil/uL (4.20-5.00); RDW 17.6 % (10.5-14.5); WBC 9.7 thou/uL (4.0-11.0)
[2016-12-17 06:11] LABS: ALBUMIN 1.4 g/dL (3.4-5.0); CALCIUM 6.9 mg/dL (8.5-10.1); PHOSPHORUS 5.8 mg/dL (2.5-4.9); POTASSIUM 3.9 mmol/L (3.5-5.1)
[2016-12-17 06:13] LABS: CREATININE 4.6 mg/dL (0.6-1.3)
[2016-12-17 14:15] VITALS: BP 160/73
[2016-12-17 15:53] VITALS: BP 161/62
[2016-12-17 21:09] VITALS: BP 165/64
[2016-12-18 00:05] VITALS: BP 159/66
[2016-12-18 04:07] VITALS: BP 154/65
[2016-12-18 12:19] VITALS: BP 161/74
[2016-12-18 15:10] VITALS: BP 153/52
[2016-12-18 20:13] VITALS: BP 153/65
[2016-12-19 05:08] VITALS: BP 151/59
[2016-12-19 05:11] LABS: HEMATOCRIT 26.5 % (37.0-47.0); MCH 28.3 pg (26.0-34.0); MCHC 32.6 g/dL (28.0-37.0); MCV 86.9 fL (80.0-100.0); RBC 3.05 mil/uL (4.20-5.00); RDW 17.1 % (10.5-14.5); WBC 8.9 thou/uL (4.0-11.0)
[2016-12-19 05:33] LABS: ALBUMIN 1.3 g/dL (3.4-5.0); CALCIUM 7.1 mg/dL (8.5-10.1); POTASSIUM 3.8 mmol/L (3.5-5.1); TOTAL BILIRUBIN 0.2 mg/dL (<0.1-1.0); TOTAL PROTEIN 5.2 g/dL (6.4-8.2)
[2016-12-19 05:36] LABS: CREATININE 3.1 mg/dL (0.6-1.3)
[2016-12-19 05:56] LABS: HEMOGLOBIN 8.6 gm/dL (12.0-15.0)
[2016-12-19 08:00] VITALS: BP 178/69
[2016-12-19] MEDS ORDERED: EFFIENT10 MG PO (11:39)
[2016-12-19] MEDS ORDERED: LANTUS100 UNIT/M SUBQ (11:40)
[2016-12-19] MEDS ORDERED: TRAMADOL 50 MG50 MG PO (11:40)
[2016-12-19] MEDS ORDERED: RENVELA800 MG PO (11:40)
[2016-12-19] MEDS ORDERED: HUMALOG100 UNIT/1 SUBQ (11:41)
[2016-12-19 12:00] VITALS: BP 154/59
== END 2016-12-19 16:05 | DRG 682 ==
LOC: ER 04:39 → EROBS 06:22 → 4S 06:22
PROVIDERS: Emergency Medicine; Family Medicine; Internal Medicine Nephrology; Nurse Practitioner Acute Care
PROC: 5A1D60Z (ICD-10-PCS; principal; 2016-12-16)
DX: I12.0 Hypertensive chronic kidney disease with stage 5 chronic kidney disease or end stage renal disease (principal); N18.6 End stage renal disease; E43 Unspecified severe protein-calorie malnutrition; Z68.43 Body mass index [BMI] 50.0-59.9, adult; E66.01 Morbid (severe) obesity due to excess calories; D64.9 Anemia, unspecified; E78.5 Hyperlipidemia, unspecified; E03.9 Hypothyroidism, unspecified; I25.10 Atherosclerotic heart disease of native coronary artery without angina pectoris; E87.70 Fluid overload, unspecified; I89.0 Lymphedema, not elsewhere classified; E11.22 Type 2 diabetes mellitus with diabetic chronic kidney disease; Z91.15 Patient's noncompliance with renal dialysis; Z95.5 Presence of coronary angioplasty implant and graft; Z90.49 Acquired absence of other specified parts of digestive tract; I25.2 Old myocardial infarction; Z88.8 Allergy status to other drugs, medicaments and biological substances; Z88.6 Allergy status to analgesic agent; Z91.041 Radiographic dye allergy status; Z91.013 Allergy to seafood; Z84.1 Family history of disorders of kidney and ureter; Z98.49 Cataract extraction status, unspecified eye; Z82.49 Family history of ischemic heart disease and other diseases of the circulatory system; Z79.899 Other long term (current) drug therapy; Z79.82 Long term (current) use of aspirin; Z99.2 Dependence on renal dialysis
CPT/HCPCS: 10100; 32100